=== PATIENT | male | born 1985 | race Hispanic/Latino ===

== ENCOUNTER 2021-11-30 21:26 | Emergency (ER) | payer OTHER ==
[~2021-11-30] VITALS: Ht 165.1 cm; Wt 60.8 kg
[2021-11-30 21:36] VITALS: BP 136/54
[2021-11-30] MEDS ORDERED: IBUPROFEN 600 MG TABLET PO ONE (22:00)
[2021-11-30] MEDS ORDERED: OSEL75 PO (22:13)
[2021-11-30] MEDS ORDERED: ONDA4TAB10 PO (22:13)
[2021-11-30] MEDS ORDERED: BENZ-39 PO (22:13)
[2021-11-30] MEDS ORDERED: IBUP-2070 PO (22:13)
== END 2021-11-30 22:29 | disposition home or self-care (01) ==
LOC: EDH 21:26
DX: J10.1 Influenza due to other identified influenza virus with other respiratory manifestations (principal); Z20.822 Contact with and (suspected) exposure to COVID-19; Z79.1 Long term (current) use of non-steroidal anti-inflammatories (NSAID)
CPT/HCPCS: 87635; 87804 ×2; 99283; C9803

== ENCOUNTER 2023-06-08 05:56 | Emergency (ER) | payer OTHER ==
[~2023-06-08] VITALS: Ht 162.6 cm; Wt 67.1 kg
[~2023-06-08 05:56] MED LIST: BENZ-39 PO; IBUP-2070 PO; ONDA4TAB10 PO; OSEL75 PO
[2023-06-08 06:49] VITALS: BP 152/74; PULSE 78; RESP 18; O2SAT 98
[2023-06-08] MEDS ORDERED: HYDROCODONE/ACETAMINOPHEN 5/325 MG TAB PO ONE (07:00)
== END 2023-06-08 06:56 | disposition home or self-care (01) ==
LOC: EDH 05:56
DX: S62.91XA Unspecified fracture of right hand, initial encounter for closed fracture (principal); Z79.899 Other long term (current) drug therapy; X58.XXXA Exposure to other specified factors, initial encounter; Y93.89 Activity, other specified; Y92.89 Other specified places as the place of occurrence of the external cause; Y99.8 Other external cause status
CPT/HCPCS: 73130